=== PATIENT | male | born 1975 | race Caucasian/White ===

== ENCOUNTER 2017-01-07 08:45 | Emergency (ER) | payer OTHER ==
[~2017-01-07] VITALS: Ht 177.8 cm; Wt 71.9 kg
[2017-01-07 08:49] VITALS: TEMP 36.8; Ht 177.8 cm; Wt 71.9 kg
[2017-01-07 09:56] LABS: BASO % 0.2 %; BASO ABS # 0.02 K/uL (0-0.2); COMPLETE YES; EOS % 0.1 %; HEMATOCRIT 45.4 % (42-52); IG% 0.2 %; LYMPH % 7.8 %; LYMPH ABS # 0.72 K/uL (1.2-3.4); MEAN CELL VOLUME 92.8 fL (80-100); MEAN CORPUSCULAR HEMOGLOBIN 29.9 pg (25-34); MEAN CORPUSCULAR HGB CONC 32.2 g/dl (32-36); MEAN PLATELET VOLUME 10.1 fL (7.4-10.4); MONO % 3.7 %; PLATELET COUNT 223 K/uL (130-400); RED BLOOD COUNT 4.89 M/uL (4.7-6.1); WHITE BLOOD COUNT 9.22 K/uL (4.8-10.8)
--- NOTE | 2017-01-07 10:02 | DIAGNOSTIC IMAGING REPORT ---
ABD/PELVIS WITHOUT FOR STONE CT DOSE: 515.00 mGy.cm HISTORY: Flank pain right flank pain TECHNIQUE: Multiaxial CT images of the abdomen and pelvis were performed without the use of intravenous and oral contrast according to the standard department stone protocol. A dose lowering technique was utilized adhering to the principles of ALARA. COMPARISON STUDY: None. FINDINGS: Lung bases are clear. Liver spleen and pancreas are unremarkable. There is a 1.5 cm hyperdense cyst versus lesion mid pole right kidney. Ultrasound as follow-up is suggested. There are several nonobstructing renal calcifications bilaterally. There is a 4 mm minimally obstructing calculus of the proximal right ureter. Mild fullness the right renal collecting system is present. More distal aspects of the urinary tracts are unremarkable. The bladder is midline. Bowel pattern is nonobstructive. The appendix is normal. IMPRESSION: 1. 4 mm partially obstructing calculus proximal right ureter. 2. Multiple additional nonobstructing calcifications bilaterally.. 3. 1.5 cm hyperdense cyst versus low-density lesion mid pole right kidney. Ultrasound is suggested as initial follow-up. The above report was generated using voice recognition software. It may contain grammatical, syntax or spelling errors. Electronically signed by: Inder Sanchez M.D. 01/07/2017 10:00 AM Dictated Date/Time: 01/07/2017 9:55 AM
[2017-01-07 10:06] LABS: BUN/CREATININE RATIO 14.8 (10-20); CALCIUM 8.9 mg/dl (8.5-10.1); POTASSIUM 3.7 mmol/L (3.5-5.1)
[2017-01-07 10:07] LABS: INR 1.1 (0.9-1.1); PARTIAL THROMBOPLASTIN RATIO 1.1; PROTHROMBIN TIME (PATIENT) 11.4 SECONDS (9.0-12.0)
[2017-01-07 10:09] LABS: ALB/GLOB RATIO 1.2 (0.9-2)
--- NOTE | 2017-01-07 10:15 | EMERGENCY ROOM VISIT NOTE ---
History First contact with patient: 08:54 Chief Complaint: ABDOMINAL PAIN Stated Complaint: ABD. PAIN/RIGHT SIDE, TESTICULAR ACHES Nursing Triage Summary: Pt c/o right sided abd pain into right testicle. Normal BM. Nausea. Denies flank pain. Pt states, "I urinated blood at [employer] this morning." Denies hx of kidney stones. History of Present Illness The patient is a 41 year old male who presents to the Emergency Room with complaints of right flank pain. The patient states that this morning he developed pain in the right lower abdomen that radiates to the right testicle. The patient states when he broke up he felt as though he needed to have a bowel movement. He had a normal bowel movement but the pain persisted. He complains of nausea as well. The patient rates his discomfort a 5/10. He went to [employer] and gave a urine sample which appeared dark and bloody. The patient was referred to the emergency department. He denies any fevers or chills. He denies vomiting. He denies any pain in his chest or trouble breathing. He denies any falls or injuries. He denies any history of kidney stones. Review of Systems A 10 system review of systems was completed with positives and pertinent negatives listed in the HPI. Past Medical/Surgical History Patient denies Social History Smoking Status: Never Smoker Drug Use: none Occupation Status: employed Current/Historical Medications Scheduled Ciprofloxacin Hcl (Cipro), 500 MG PO BID Tamsulosin Hcl (Flomax), 0.4 MG PO DAILY Scheduled PRN Oxycodone Ir (Roxicodone Ir), 1-2 TAB PO Q4H PRN for Pain Allergies Coded Allergies: No Known Allergies (Unverified , 01/07/17) Physical Exam Vital Signs Date Time Temp Pulse Resp B/P (MAP) Pulse Ox O2 Delivery O2 Flow Rate FiO2 01/07/17 11:03 64 18 130/62 100 Room Air 01/07/17 09:57 66 18 131/73 100 Room Air 01/07/17 08:49 36.8 58 18 116/89 100 Room Air Pain Rating (0-10): 3.0 Physical Exam VITALS: Vitals are noted on the nurse's note and reviewed by myself. Vital signs stable. The patient is afebrile. GENERAL: This is a 41-year-old male, in no acute distress, nondiaphoretic, well- developed well-nourished. SKIN: The skin was without rashes, erythema, edema, or bruising. There is no tenting of the skin. Capillary reflex less than 2 seconds. HEAD: Normocephalic atraumatic. EARS: The external ears are normal in appearance. EYES: Pupils equal round and reactive to light and accommodation. Conjunctivae without injection, sclerae without icterus. Extraocular movements intact. NOSE: Patent, turbinates without inflammation or discharge. MOUTH: Mucous membranes moist. Tonsils are not enlarged. Pharynx without erythema or exudate. Uvula midline. Airway patent. Tongue does not deviate. NECK: Supple without nuchal rigidity. No JVD. HEART: Regular rate and rhythm without murmurs gallops or rubs. LUNGS: Clear to auscultation bilaterally without wheezes, rales or rhonchi. No retractions or accessory muscle use. ABDOMEN: Positive bowel sounds x 4. Soft, mild right lower abdominal tenderness to deep palpation, without masses or organomegaly. Walden sign negative. Negative Ross feedings. Negative rebound. MUSCULOSKELETAL: No muscle atrophy, erythema, or edema noted. Full range of motion in all extremities. Strength 5/5 throughout. NEURO: Patient was alert and oriented to person place and time. No focal neurological deficits. Medical Decision & Procedures ER Provider Diagnostic Interpretation: ABD/PELVIS WITHOUT FOR STONE CT DOSE: 515.00 mGy.cm HISTORY: Flank pain right flank pain TECHNIQUE: Multiaxial CT images of the abdomen and pelvis were performed without the use of intravenous and oral contrast according to the standard department stone protocol. A dose lowering technique was utilized adhering to the principles of ALARA. COMPARISON STUDY: None. FINDINGS: Lung bases are clear. Liver spleen and pancreas are unremarkable. There is a 1.5 cm hyperdense cyst versus lesion mid pole right kidney. Ultrasound as follow-up is suggested. There are several nonobstructing renal calcifications bilaterally. There is a 4 mm minimally obstructing calculus of the proximal right ureter. Mild fullness the right renal collecting system is present. More distal aspects of the urinary tracts are unremarkable. The bladder is midline. Bowel pattern is nonobstructive. The appendix is normal. IMPRESSION: 1. 4 mm partially obstructing calculus proximal right ureter. 2. Multiple additional nonobstructing calcifications bilaterally.. 3. 1.5 cm hyperdense cyst versus low-density lesion mid pole right kidney. Ultrasound is suggested as initial follow-up. Laboratory Results 01/07/17 09:05 Red Blood Count 4.89, Mean Corpuscular Volume 92.8, Mean Corpuscular Hemoglobin 29.9, Mean Corpuscular Hemoglobin Concent 32.2, Mean Platelet Volume 10.1, Neutrophils (%) (Auto) 88.0, Lymphocytes (%) (Auto) 7.8, Monocytes (%) (Auto) 3.7, Eosinophils (%) (Auto) 0.1, Basophils (%) (Auto) 0.2, Neutrophils # (Auto) 8.11, Lymphocytes # (Auto) 0.72, Monocytes # (Auto) 0.34, Eosinophils # (Auto) 0.01, Basophils # (Auto) 0.02 01/07/17 09:05 Test 01/07/17 09:00 01/07/17 09:05 Urine Color BROWN Urine Appearance TURBID (CLEAR) Urine pH 6.0 (4.5-7.5) Urine Specific Pearce 1.025 (1.000-1.030) Urine Protein 2+ (NEG) Urine Glucose (UA) NEG (NEG) Urine Ketones 1+ (NEG) Urine Occult Blood 3+ (NEG) Urine Nitrite NEG (NEG) Urine Bilirubin NEG (NEG) Urine Urobilinogen NEG (NEG) Urine Leukocyte Esterase NEG (NEG) Urine RBC >30 /hpf (0-4) Urine WBC 10-30 /hpf (0-5) Urine Epithelial Cells 5-10 /lpf (0-5) Urine Calcium Oxalate Crystals PRESENT (NONE PRSENT) Urine Bacteria NEG (NEG) White Blood Count 9.22 K/uL (4.8-10.8) Red Blood Count 4.89 M/uL (4.7-6.1) Hemoglobin 14.6 g/dL (14.0-18.0) Hematocrit 45.4 % (42-52) Mean Corpuscular Volume 92.8 fL (80-100) Mean Corpuscular Hemoglobin 29.9 pg (25-34) Mean Corpuscular Hemoglobin Concent 32.2 g/dl (32-36) Platelet Count 223 K/uL (130-400) Mean Platelet Volume 10.1 fL (7.4-10.4) Neutrophils (%) (Auto) 88.0 % Lymphocytes (%) (Auto) 7.8 % Monocytes (%) (Auto) 3.7 % Eosinophils (%) (Auto) 0.1 % Basophils (%) (Auto) 0.2 % Neutrophils # (Auto) 8.11 K/uL (1.4-6.5) Lymphocytes # (Auto) 0.72 K/uL (1.2-3.4) Monocytes # (Auto) 0.34 K/uL (0.11-0.59) Eosinophils # (Auto) 0.01 K/uL (0-0.5) Basophils # (Auto) 0.02 K/uL (0-0.2) RDW Standard Deviation 43.9 fL (36.4-46.3) RDW Coefficient of Variation 12.9 % (11.5-14.5) Immature Granulocyte % (Auto) 0.2 % Immature Granulocyte # (Auto) 0.02 K/uL (0.00-0.02) Prothrombin Time 11.4 SECONDS (9.0-12.0) Prothromb Time International Ratio 1.1 (0.9-1.1) Activated Partial Thromboplast Time 29.2 SECONDS (21.0-31.0) Partial Thromboplastin Ratio 1.1 Anion Gap 6.0 mmol/L (3-11) Est Creatinine Clear Calc Drug Dose 99.9 ml/min Estimated GFR () 108.6 Estimated GFR (Non- 93.7 BUN/Creatinine Ratio 14.8 (10-20) Calcium Level 8.9 mg/dl (8.5-10.1) Total Bilirubin 0.5 mg/dl (0.2-1) Aspartate Amino Transf (AST/SGOT) 42 U/L (15-37) Alanine Aminotransferase (ALT/SGPT) 51 U/L (12-78) Alkaline Phosphatase 91 U/L (45-117) Total Creatine Kinase 424 U/L (39-308) Total Protein 7.5 gm/dl (6.4-8.2) Albumin 4.1 gm/dl (3.4-5.0) Globulin 3.4 gm/dl (2.5-4.0) Albumin/Globulin Ratio 1.2 (0.9-2) Lipase 113 U/L (73-393) ED Course The patient was seen and examined. Previous visits were reviewed. The patient does not have a fever or leukocytosis. He does not have any significant electrolyte abnormality. AST is 42. CPK is slightly elevated at 424. Lipase is not elevated. INR is 1.1. Urinalysis suggests contamination from the kidney stone versus urinary tract infection. Urine culture is pending. The patient was hydrated with IV normal saline solution 1 L He did not require any pain medication while in the emergency department. CT scan of the abdomen and pelvis was obtained as above. There is a 4 mm right proximal ureteral stone. There is no incidental note made of 1.5 cm hyperdense cyst versus lesion in the mid right kidney. The patient was advised of this. He was advised that ultrasound is suggested in follow-up. He should follow-up with his family doctor for this. The patient was feeling well. He is afebrile. His urinalysis suggests possible contamination from the kidney stone versus infection. He will be placed on Cipro twice daily for 5 days. He will be given a prescription for Flomax. He'll be given a prescription for OxyIR. He should return to the year with any fevers, intractable pain or generalized worsening symptoms. Otherwise , he should follow-up with urology and/or his family doctor. Medical Decision DIFFERENTIAL DIAGNOSIS: Hepatitis, cholecystitis, cholangitis, biliary colic, pancreatitis, pneumonia, subdiaphragmatic abscess, appendicitis, inguinal hernia , nephrolithiasis, inflammatory bowel disease, mesenteric adenitis, peptic ulcer disease, GERD, gastritis, pancreatitis, myocardial infarction, pericarditis, ruptured aortic aneurysm, appendicitis, gastroenteritis, bowel obstruction, splenic infarct, diverticulitis, mesenteric ischemia, metabolic, peritonitis, among others. [place] Drug Monitoring Program Search Results: patient reviewed within database, no issues identified Impression Primary Impression: Kidney stone Departure Information Dispostion Home / Self-Care Condition GOOD Prescriptions Oxycodone Ir (Roxicodone Ir) 5 Mg Tab 1-2 TAB PO Q4H Y for Pain, #36 TAB For Initial Treatment Prov: Ivy Ngo PA-C 01/07/17 Ciprofloxacin Hcl (CIPRO) 500 Mg Tab 500 MG PO BID for 5 Days, #10 TAB Prov: Iyv Ngo PA-C 01/07/17 Tamsulosin Hcl (FLOMAX) 0.4 Mg Cap 0.4 MG PO DAILY for 7 Days, #7 CAP Prov: Ivy Ngo PA-C 01/07/17 Referrals No Doctor, Assigned (PCP) Jose Caceres M.D. Patient Instructions Kidney Stones, [facility] Additional Instructions Ibuprofen 600 mg every 6-8 hours or moderate pain. Flomax once daily for 7 days to help dilate the ureters and help the stone pass. Cipro every 12 hours for 5 days. Return with fever or intractable pain. Follow-up with urology if symptoms are not improving. Oxy IR 1-2 tablets every 4-6 hrs as needed for worse pain. No driving or alcohol use with Oxy IR.
[2017-01-07 10:34] LABS: MANUAL MICROSCOPIC REQUIRED? YES; URINE APPEARANCE TURBID (CLEAR); URINE BILIRUBIN NEG (NEG); URINE COLOR BROWN; URINE NITRITE NEG (NEG); URINE SPECIFIC GRAVITY 1.025 (1.000-1.030); UROBILINOGEN NEG (NEG)
[2017-01-07 10:40] LABS: REVIEW REQ? NO
[2017-01-07 10:42] LABS: URINE RBC >30 /hpf (0-4)
[2017-01-07 10:44] LABS: URINE BACTERIA NEG (NEG)
[2017-01-07 10:45] LABS: ZZUR CULT IF INDIC CLEAN CATCH YES
[2017-01-07] MEDS ORDERED: CIPR-255 PO (10:48)
[2017-01-07] MEDS ORDERED: TAMS0.4C38 PO (10:48)
[2017-01-07] MEDS ORDERED: OXYC1TAB3 PO (10:57)
[2017-01-07 11:03] VITALS: BP 130/62; PULSE 64; O2SAT 100
== END 2017-01-07 11:08 | disposition home or self-care (01) ==
LOC: C.EDB 08:48
DX: N20.0 Calculus of kidney (principal)